=== PATIENT | female | born 1970 | race Caucasian/White ===

== ENCOUNTER 2020-04-26 06:48 | Day surgery (SDC) | payer MEDICAID, SELFPAY ==
[~2020-04-26] VITALS: Ht 160 cm; Wt 74.8 kg
[2020-04-26] MEDS ORDERED: SIMETHICONE 40 MG/0.6 ML ML ONE (07:14)
[2020-04-26] MEDS ORDERED: MIDAZOLAM HCL 5 MG/5 ML VIAL ONE (07:14)
[2020-04-26] MEDS ORDERED: fentaNYL CITRATE/PF 100 MCG/2 ML AMP ONE (07:14)
[2020-04-26] MEDS: MIDAZOLAM HCL 5 MG/5 ML VIAL IVP ONE ×4 (08:53→08:59)
[2020-04-26] MEDS: fentaNYL CITRATE/PF 100 MCG/2 ML AMP IVP ONE ×2 (08:54→08:57)
[2020-04-26 13:49] VITALS: BP_SYST 120
== END 2020-04-26 10:35 | disposition home or self-care (01) ==
LOC: SDS 06:48 → SMU 06:48 → SDS 10:35
PROVIDERS: ATTEND Internal Medicine
DX: R10.13 Epigastric pain (principal); K29.70 Gastritis, unspecified, without bleeding; K44.9 Diaphragmatic hernia without obstruction or gangrene; I12.9 Hypertensive chronic kidney disease with stage 1 through stage 4 chronic kidney disease, or unspecified chronic kidney disease; N18.9 Chronic kidney disease, unspecified; Z90.49 Acquired absence of other specified parts of digestive tract
CPT/HCPCS: 36415 ×2; 43239; 87081; 87426; 88305; 88312; 88313; 99152; G0378; J2250; J3010; J7030

== ENCOUNTER 2021-12-31 06:58 | Day surgery (SDC) | payer MEDICAID ==
[~2021-12-31] VITALS: Ht 157.5 cm; Wt 74.8 kg
[2021-12-31] MEDS ORDERED: MIDAZOLAM HCL 5 MG/5 ML VIAL ONE (10:14)
[2021-12-31] MEDS ORDERED: fentaNYL CITRATE/PF 100 MCG/2 ML AMP ONE (10:14)
[2021-12-31 14:01] VITALS: BP_SYST 119
== END 2021-12-31 11:45 | disposition home or self-care (01) ==
LOC: SDS 06:58 → SMU 07:19 → SDS 11:45
PROVIDERS: ATTEND Internal Medicine
DX: R10.13 Epigastric pain (principal); K29.50 Unspecified chronic gastritis without bleeding; K21.00 Gastro-esophageal reflux disease with esophagitis, without bleeding; K29.80 Duodenitis without bleeding; I12.9 Hypertensive chronic kidney disease with stage 1 through stage 4 chronic kidney disease, or unspecified chronic kidney disease; N18.9 Chronic kidney disease, unspecified; Z79.899 Other long term (current) drug therapy; Z20.822 Contact with and (suspected) exposure to COVID-19
CPT/HCPCS: 43239; 87426; 87081; 36415; 88305; 88312; 88313; 99152; G0378; J2250; J3010